=== PATIENT | female | born 1980 | race Caucasian/White ===

== ENCOUNTER 2016-10-23 15:52 | Emergency (ER) | payer OTHER ==
[~2016-10-23] VITALS: Ht 175.3 cm; Wt 78.7 kg
[2016-10-23] MEDS ORDERED: HYDROcodone/APAP 5/325 TABLET PO ONE (16:00)
[2016-10-23] MEDS ORDERED: PLEASE ENTER ALLERGIES MC SCH ×2 (16:00)
[2016-10-23] MEDS ORDERED: PLEASE ENTER HEIGHT AND WEIGHT MC SCH (16:00)
[2016-10-23] MEDS ORDERED: TRAZ150T68 PO (16:00)
[2016-10-23] MEDS ORDERED: HYDR-3343 PO (16:00)
[2016-10-23] MEDS ORDERED: FLUO10CA13 PO (16:00)
[2016-10-23] MEDS ORDERED: HYDROcodone/APAP 5/325 TABLET ONE (16:37)
[2016-10-23 17:08] VITALS: BP 123/72
== END 2016-10-23 17:12 | disposition home or self-care (01) ==
LOC: ED 16:08
DX: S16.1XXA Strain of muscle, fascia and tendon at neck level, initial encounter (principal); S00.83XA Contusion of other part of head, initial encounter; V89.2XXA Person injured in unspecified motor-vehicle accident, traffic, initial encounter; F17.200 Nicotine dependence, unspecified, uncomplicated
CPT/HCPCS: 70450; 70486; 72125